=== PATIENT | male | born 1950 | race Caucasian/White ===

== ENCOUNTER 2016-11-21 17:43 | Observation (INO) | payer MEDICARE ==
[~2016-11-21] VITALS: Ht 180.3 cm; Wt 100.0 kg
[2016-11-21 17:45] VITALS: BP 139/84; PULSE 91; RESP 13; TEMP 98.7; O2SAT 100
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
[2016-11-21] MEDS ORDERED: PLAV75TA29 PO (18:41)
[2016-11-21] MEDS ORDERED: TRAM50TA PO (18:41)
[2016-11-21] MEDS ORDERED: CIME400T PO (18:41)
[2016-11-21] MEDS ORDERED: TAMS5CAP PO (18:41)
[2016-11-21] MEDS ORDERED: SERO100T PO (18:41)
[2016-11-21] MEDS ORDERED: HYDR12.57 PO (18:41)
[2016-11-21] MEDS ORDERED: LISI10TA3 PO (18:41)
[2016-11-21] MEDS ORDERED: SERO50TA PO (18:41)
[2016-11-21] MEDS ORDERED: ZANA4CAP PO (18:41)
[2016-11-21 19:20] LABS: AUTOMATED NEUTROPHIL # 6.4 TH/MM3 (1.8-7.7); BASOPHIL # 0.1 TH/MM3 (0-0.2); BASOPHIL % 0.9 % (0.0-2.0); EOSINOPHIL # 0.4 TH/MM3 (0-0.4); EOSINOPHIL % 4.1 % (0.0-4.0); HEMATOCRIT 37.1 % (39.0-51.0); LYMPH % 26.4 % (9.0-44.0); LYMPHOCYTE # 2.7 TH/MM3 (1.0-4.8); MEAN CELL VOLUME 81.8 FL (80.0-100.0); MEAN CORPUSCULAR HEMOGLOBIN 29.9 PG (27.0-34.0); MONO % 6.1 % (0.0-8.0); NEUT % 62.5 % (16.0-70.0); PLATELET COUNT 253 TH/MM3 (150-450); RED BLOOD COUNT 4.53 MIL/MM3 (4.50-5.90); RED CELL DISTRIBUTION WIDTH 13.9 % (11.6-17.2); WHITE BLOOD COUNT 10.2 TH/MM3 (4.0-11.0)
[2016-11-21 19:21] LABS: HEMO FLAGS AUTO DIFF; MEAN CORPUSCULAR HGB CONC 36.5 % (32.0-36.0)
[2016-11-21 19:32] LABS: APTT (PATIENT) 28.9 SEC (24.3-30.1); PROTHROMBIN TIME - PATIENT 10.7 SEC (9.8-11.6)
[2016-11-21 19:40] LABS: ALT (GPT) 32 U/L (12-78); ANION GAP 8 MEQ/L (5-15); AST (GOT) 11 U/L (15-37); BICARBONATE 24.7 MEQ/L (21.0-32.0); BLOOD UREA NITROGEN 33 MG/DL (7-18); CHLORIDE 94 MEQ/L (98-107); GLOMERULAR FILTRATION RATE 24 ML/MIN (>89); POTASSIUM 3.7 MEQ/L (3.5-5.1); SODIUM (NA) 127 MEQ/L (136-145)
[2016-11-21 19:41] LABS: BACTERIA, URINE OCC /hpf; BLOOD, URINE MOD (NEG); COMMENT (UR) CULTURE INDICATED; CULTURE IF INDICATED CULTURE INDICATED; GLUCOSE,URINE NEG (NEG); KETONE, URINE NEG (NEG); NITRITE,URINE NEG (NEG); PH, URINE 5.5 (5.0-8.5); URINE COLOR LIGHT-YELLOW (YELLW/STRAW)
[2016-11-21 19:43] LABS: ALKALINE PHOSPHATASE 265 U/L (45-117); TOTAL BILIRUBIN ADULT 0.4 MG/DL (0.2-1.0)
[2016-11-21 19:45] LABS: ALCOHOL LESS THAN 3 MG/DL (0-5)
[2016-11-21 19:46] LABS: SCAN/DIFF AUTO DIFF CONFIRMED
[2016-11-21] MEDS ORDERED: cefTRIAXone INJ 1,000 MG in SODIUM CHLORIDE 0.9% INJ 100 ML IV ONE (20:00)
[2016-11-21] MEDS ORDERED: SODIUM CHLOR 0.9% 1000 ML INJ 1,000 ML IV ONE (20:00)
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
[2016-11-21] MEDS ORDERED: SODIUM CHLORIDE 0.9% FLUSH 10 ML FLUSH IV FLUSH PRN (21:15)
[2016-11-21] MEDS ORDERED: ACETAMINOPHEN/HYDROcodone 325 MG/10 MG TAB PO PRN (21:15)
[2016-11-21] MEDS ORDERED: ACETAMINOPHEN/HYDROcodone 325 MG/5 MG TAB PO PRN (21:15)
[2016-11-21] MEDS ORDERED: SENNOSIDES 8.6 MG TAB PO PRN (21:15)
[2016-11-21] MEDS ORDERED: LACTULOSE SYRUP 20 GM/30 ML CUP PO PRN (21:15)
[2016-11-21] MEDS ORDERED: ONDANSETRON HCL 4 MG/2 ML VIAL IVP PRN (21:15)
[2016-11-21] MEDS ORDERED: ACETAMINOPHEN 325 MG TAB PO PRN (21:15)
[2016-11-21] MEDS ORDERED: MAGNESIUM HYDROXIDE SUSP 30 ML CUP PO PRN (21:15)
[2016-11-21] MEDS ORDERED: BISACODYL 10 MG SUPP RECTAL PRN (21:15)
[2016-11-21 22:20] VITALS: BP 122/74; PULSE 88; RESP 16
[2016-11-21 22:52] VITALS: BP 149/80; PULSE 78; RESP 18; O2SAT 94
[2016-11-21] MEDS: SODIUM CHLOR 0.9% 1000 ML INJ 1,000 ML IV SCH (23:08)
[2016-11-22 07:57] VITALS: BP 143/91; PULSE 78; RESP 20; O2SAT 96
[2016-11-22 08:06] VITALS: TEMP 98.1
[2016-11-22 08:20] LABS: AUTOMATED NEUTROPHIL # 6.6 TH/MM3 (1.8-7.7); BASOPHIL # 0.1 TH/MM3 (0-0.2); EOSINOPHIL # 0.4 TH/MM3 (0-0.4); EOSINOPHIL % 4.1 % (0.0-4.0); HEMATOCRIT 40.2 % (39.0-51.0); HEMO FLAGS DIFF FINAL; LYMPH % 19.4 % (9.0-44.0); LYMPHOCYTE # 1.9 TH/MM3 (1.0-4.8); MEAN CELL VOLUME 81.4 FL (80.0-100.0); MEAN CORPUSCULAR HEMOGLOBIN 28.8 PG (27.0-34.0); MEAN CORPUSCULAR HGB CONC 35.4 % (32.0-36.0); MONO % 6.3 % (0.0-8.0); NEUT % 69.2 % (16.0-70.0); PLATELET COUNT 267 TH/MM3 (150-450); RED BLOOD COUNT 4.94 MIL/MM3 (4.50-5.90); RED CELL DISTRIBUTION WIDTH 13.8 % (11.6-17.2); WHITE BLOOD COUNT 9.5 TH/MM3 (4.0-11.0)
[2016-11-22 08:53] LABS: ALKALINE PHOSPHATASE 272 U/L (45-117); ALT (GPT) 31 U/L (12-78); ANION GAP 7 MEQ/L (5-15); AST (GOT) 15 U/L (15-37); BICARBONATE 24.1 MEQ/L (21.0-32.0); BLOOD UREA NITROGEN 30 MG/DL (7-18); CHLORIDE 106 MEQ/L (98-107); GLOMERULAR FILTRATION RATE 32 ML/MIN (>89); POTASSIUM 4.2 MEQ/L (3.5-5.1); SODIUM (NA) 137 MEQ/L (136-145); TOTAL BILIRUBIN ADULT 0.3 MG/DL (0.2-1.0)
[2016-11-22] MEDS: DOCUSATE SODIUM 50 MG/SENNA 8.6 MG TAB PO SCH ×2 (09:00→21:24)
[2016-11-22] MEDS: SODIUM CHLOR 0.9% 1000 ML INJ 1,000 ML IV SCH ×2 (09:38→17:08)
[2016-11-22] MEDS: SODIUM CHLORIDE 0.9% FLUSH 10 ML FLUSH IV FLUSH SCH ×2 (09:38→21:00)
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
[2016-11-22 11:32] VITALS: BP 180/84; PULSE 62; RESP 19; TEMP 97.4; O2SAT 97
[2016-11-22] MEDS: FAMOTIDINE 20 MG TAB PO SCH (11:40)
[2016-11-22] MEDS: cloNIDine HCL 0.1 MG TAB PO PRN (11:40)
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
[2016-11-22] MEDS ORDERED: RISP0.5T20 PO (12:50)
[2016-11-22] MEDS ORDERED: PROZ20CA11 PO (12:50)
[2016-11-22 15:08] VITALS: BP 156/91; PULSE 62; RESP 20; TEMP 97.5; O2SAT 96
[2016-11-22] MEDS: FLUoxetine HCL 20 MG CAP PO SCH (15:19)
[2016-11-22 20:41] VITALS: BP 158/75; PULSE 80; RESP 18; TEMP 98.2; O2SAT 97
[2016-11-22] MEDS ORDERED: cefTRIAXone INJ 1,000 MG in SODIUM CHLORIDE 0.9% INJ 100 ML IV SCH (21:00)
[2016-11-22] MEDS: QUEtiapine FUMARATE 25 MG TAB PO SCH (21:24)
[2016-11-22] MEDS: TAMSULOSIN HCL 0.4 MG CAP PO SCH (21:25)
[2016-11-23 00:13] VITALS: BP 143/88; PULSE 56; RESP 19; TEMP 98.2; O2SAT 96
[2016-11-23 04:10] VITALS: BP 147/84; PULSE 81; RESP 18; TEMP 98.1; O2SAT 99
[2016-11-23 06:02] LABS: BICARBONATE 26.2 MEQ/L (21.0-32.0); POTASSIUM 3.8 MEQ/L (3.5-5.1)
[2016-11-23] MEDS: SODIUM CHLOR 0.9% 1000 ML INJ 1,000 ML IV SCH ×2 (06:15→13:08)
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
[2016-11-23] MEDS: SODIUM CHLORIDE 0.9% FLUSH 10 ML FLUSH IV FLUSH SCH ×2 (09:00→21:00)
[2016-11-23] MEDS: DOCUSATE SODIUM 50 MG/SENNA 8.6 MG TAB PO SCH ×2 (09:00→20:59)
[2016-11-23] MEDS: FAMOTIDINE 20 MG TAB PO SCH (10:09)
[2016-11-23] MEDS: CLOPIDOGREL 75 MG TAB PO SCH (10:09)
[2016-11-23] MEDS: FLUoxetine HCL 20 MG CAP PO SCH (10:10)
[2016-11-23] MEDS: QUEtiapine FUMARATE 25 MG TAB PO SCH ×2 (10:10→20:59)
[2016-11-23] MEDS: QUEtiapine FUMARATE 100 MG TAB PO SCH (10:10)
[2016-11-23] MEDS ORDERED: CIPR500T2 PO (10:50)
[2016-11-23] MEDS: CIPROFLOXACIN 500 MG TAB PO SCH ×2 (11:49→20:59)
[2016-11-23 13:11] VITALS: BP 137/77; PULSE 78; RESP 20; TEMP 97.6; O2SAT 96
[2016-11-23 20:53] VITALS: BP 193/96; PULSE 80; RESP 18; TEMP 98.4; O2SAT 98
[2016-11-23] MEDS: cloNIDine HCL 0.1 MG TAB PO PRN (20:59)
[2016-11-23] MEDS: TAMSULOSIN HCL 0.4 MG CAP PO SCH (20:59)
[2016-11-23 23:55] VITALS: BP 128/83; PULSE 60; RESP 18; TEMP 98.2; O2SAT 98
[2016-11-24] MEDS: SODIUM CHLOR 0.9% 1000 ML INJ 1,000 ML IV SCH (00:59)
[2016-11-24 03:15] VITALS: BP 156/96; PULSE 76; RESP 18; TEMP 98; O2SAT 95
[2016-11-24 05:39] LABS: BICARBONATE 23.3 MEQ/L (21.0-32.0); POTASSIUM 3.9 MEQ/L (3.5-5.1)
[2016-11-24] MEDS: DOCUSATE SODIUM 50 MG/SENNA 8.6 MG TAB PO SCH (09:00)
[2016-11-24] MEDS: SODIUM CHLORIDE 0.9% FLUSH 10 ML FLUSH IV FLUSH SCH (09:00)
[2016-11-24 09:03] VITALS: BP 156/108; PULSE 95; RESP 16; TEMP 97.9; O2SAT 96
[2016-11-24] MEDS: CIPROFLOXACIN 500 MG TAB PO SCH (10:27)
[2016-11-24] MEDS: FLUoxetine HCL 20 MG CAP PO SCH (10:27)
[2016-11-24] MEDS: QUEtiapine FUMARATE 25 MG TAB PO SCH (10:28)
[2016-11-24] MEDS: FAMOTIDINE 20 MG TAB PO SCH (10:28)
[2016-11-24] MEDS: QUEtiapine FUMARATE 100 MG TAB PO SCH (10:28)
[2016-11-24] MEDS: CLOPIDOGREL 75 MG TAB PO SCH (10:28)
[2016-11-24 12:15] VITALS: BP 144/85; PULSE 66; RESP 18; TEMP 98.6; O2SAT 94
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
== END 2016-11-24 17:34 ==
LOC: NEPD 17:43 → NEDA 20:48 → NEPFCDU 22:33
PROVIDERS: ADMIT Hospitalist; ATTEND Hospitalist
DX: F02.81 Dementia in other diseases classified elsewhere, unspecified severity, with behavioral disturbance (principal); G31.09 Other frontotemporal neurocognitive disorder; F60.89 Other specific personality disorders; N17.9 Acute kidney failure, unspecified; N39.0 Urinary tract infection, site not specified; I10 Essential (primary) hypertension; E87.1 Hypo-osmolality and hyponatremia; N40.0 Benign prostatic hyperplasia without lower urinary tract symptoms; T83.511A Infection and inflammatory reaction due to indwelling urethral catheter, initial encounter; B96.1 Klebsiella pneumoniae [K. pneumoniae] as the cause of diseases classified elsewhere; Z72.0 Tobacco use
CPT/HCPCS: 80048; 80053; 80307; 81001; 85025; 85610; 85730; 87077; 87086; 87186; 96361; 96365; 96376; 99285; G0378; J0696; J7030